=== PATIENT | female | born 1975 | race African-American/Black ===

== ENCOUNTER 2016-10-01 11:24 | Emergency (ER) | payer BC ==
[2016-10-01 10:35] LABS: BASOPHILS 0.1 %; BASOPHILS ABSOLUTE 0.01 10/3/uL (0.0-0.16); EOSINOPHILS 0.5 %; EOSINOPHILS ABSOLUTE 0.04 10/3/uL (0.0-0.53); HEMATOCRIT 34.9 % (36.0-48.0); HEMOGLOBIN 12.2 g/dL (12.0-16.0); IMMATURE GRANULOCYTES 0.3 %; IMMATURE GRANULOCYTES ABSOLUTE 0.02 10/3/uL (0.0-0.11); LYMPHOCYTES 25.2 %; LYMPHOCYTES ABSOLUTE 1.93 10/3/uL (0.67-4.30); MEAN CORPUSCULAR HEMOGLOB 29.6 pg (26.0-34.0); MEAN CORPUSCULAR VOLUME 84.7 fL (80-100); MEAN PLATELET VOLUME 10.1 fL (9.2-13.0); MONOCYTES 4.8 %; MONOCYTES ABSOLUTE 0.37 10/3/uL (0.21-1.20); NEUTROPHILS 69.1 %; NEUTROPHILS ABSOLUTE 5.29 10/3/uL (2.02-8.40); PLATELET COUNT 303 10/3/uL (150-400); RBC DISTRIBUTION WIDTH 13.5 % (12.0-16.0); RED CELL COUNT 4.12 10/6/uL (4.0-5.6); WHITE BLOOD CELLS 7.7 10/3/uL (4.5-10.5)
[2016-10-01 10:37] LABS: MANUAL DIFF NO %
[2016-10-01 10:39] LABS: ASCORBIC ACID (UR NOT ORDER) NEG (NEG); BILIRUBIN, URINE NEGATIVE (NEG); ER URINALYSIS TAT 0 Hrs 08 Mins; KETONE, URINE NEGATIVE (NEG); LEUKOCYTE ESTERASE(NOT OR LARGE (NEG); NITRITE (URINE) NEG (NEG); WBC (NOT ORDERED) (RFLEX) 59 (0-5)
[2016-10-01 10:48] LABS: ALBUMIN 3.6 G/DL (3.5-5.0); ALKALINE PHOSPHATASE 69 U/L (45-117); BUN (BLOOD UREA NITROGEN) 9 MG/DL (6-23); CALCIUM, SERUM 8.3 MG/DL (8.5-10.4); CHLORIDE, SERUM 105 MMOL/L (96-112); CO2 (CARBON DIOXIDE) 27 MMOL/L (24-34); CREATININE 0.67 MG/DL (0.55-1.02); GFR AFRICAN AMERICAN 125 ML/MIN (>=60); GFR NON AFRICAN AMERICAN 108 ML/MIN (>=60); GLOBULIN 3.6 G/DL (2.5-4.1); GLUCOSE, SERUM 98 MG/DL (60-99); POTASSIUM, SERUM 3.2 MMOL/L (3.5-5.3); SGOT(AST) 11 U/L (5-40); SGPT(ALT) 13 U/L (5-65); SODIUM, SERUM 141 MMOL/L (135-148); TOTAL BILIRUBIN 0.5 MG/DL (0-1.2); TOTAL PROTEIN 7.2 G/DL (6.0-8.5)
== END 2016-10-01 11:26 | disposition home or self-care (01) ==
LOC: ER 11:24
PROVIDERS: Nurse Practitioner
DX: N39.0 Urinary tract infection, site not specified (principal); M54.41 Lumbago with sciatica, right side
CPT/HCPCS: 80053; 81001; 83690; 84703; 85025; 87077; 87086; 87186; 99284; A9270-GY